=== PATIENT | female | born 1965 ===

== ENCOUNTER 2018-04-25 17:42 | Emergency (ER) | payer OTHER ==
[2018-04-25 18:07] VITALS: TEMP 98.8
--- NOTE | 2018-04-25 18:54 | ED PDOC ---
HPI: Abdomen Time Seen by Provider: 04/25/18 18:00 Chief Complaint (Nursing): Female Genitourinary Chief Complaint (Provider): Abdominal distention History Per: Patient History/Exam Limitations: no limitations Onset/Duration Of Symptoms: Days Outside of [place] travel?: No Current Symptoms Are (Timing): Still Present Quality Of Discomfort: Pressure, "Pain" Associated Symptoms: Urinary Symptoms Additional History Per: Patient Additional Complaint(s): 52yo female, otherwise well, comes to ER with complaints of abdominal distention , pressure and lower abdominal pain x 1 week. She also reports mild hematuria and pressure upon urination; patient was evaluated by Dr. Naranjo and had a urinalysis which showed proteins in the urine. She also states 1 week ago, she had right sided chest pain and then a couple days later, experienced vision loss. Patient was evaluated by her opthlamologist who stated " ? amarosas fugax or ? migraines"; patient's vision was reported to be normal. Currently, she reports generalized malaise and pain at her joints. Otherwise, no fever, chills , chest pain currently, shortness of breath, weakness or numbness. No other medical complaints. Past Medical History Reviewed: Historical Data, Nursing Documentation, Vital Signs Vital Signs: Last Vital Signs Temp 98.8 F 04/25/18 21:28 Pulse 60 04/25/18 21:28 Resp 16 04/25/18 21:28 BP 126/75 04/25/18 21:28 Pulse Ox 98 04/26/18 04:42 - Medical History PMH: No Chronic Diseases - Surgical History Surgical History: No Surg Hx - Family History Family History: States: No Known Family Hx - Home Medications Home Medications: Ambulatory Orders Medication Instructions Recorded Ibuprofen [Motrin] 600 mg PO TID PRN #30 tab 12/09/13 Ketorolac Tromethamine [Toradol] 10 mg PO BID #30 tab 04/25/18 Simethicone [Gas Relief 80] 80 mg PO DAILY #12 ctb 04/25/18 - Allergies Allergies/Adverse Reactions: Allergies Allergy/AdvReac Type Severity Reaction Status Date / Time No Known Allergies Allergy Verified 04/25/18 18:00 Review of Systems ROS Statement: Except As Marked, All Systems Reviewed And Found Negative Constitutional: Positive for: Weakness, Malaise. Negative for: Fever, Chills Cardiovascular: Negative for: Chest Pain Respiratory: Negative for: Shortness of Breath Gastrointestinal: Positive for: Abdominal Pain Genitourinary Female: Positive for: Dysuria, Hematuria Neurological: Negative for: Weakness, Numbness, Headache Physical Exam - Reviewed Nursing Documentation Reviewed: Yes Vital Signs Reviewed: Yes - Physical Exam Appears: Positive for: Non-toxic Head Exam: Positive for: ATRAUMATIC, NORMAL INSPECTION, NORMOCEPHALIC Skin: Positive for: Normal Color Eye Exam: Positive for: Normal appearance, EOMI, PERRL Neck: Positive for: Normal, Supple Cardiovascular/Chest: Positive for: Regular Rate, Rhythm Respiratory: Positive for: Normal Breath Sounds Gastrointestinal/Abdominal: Positive for: Soft, Tenderness (suprapubic). Negative for: Mass, Guarding, Rebound Back: Positive for: L CVA Tenderness (mild) Extremity: Positive for: Normal ROM. Negative for: Deformity Neurologic/Psych: Positive for: Alert, Oriented. Negative for: Motor/Sensory Deficits - Laboratory Results Result Diagrams: 04/25/18 19:12 04/25/18 19:12 - ECG O2 Sat by Pulse Oximetry: 98 (RA) Pulse Ox Interpretation: Normal Medical Decision Making Medical Decision Making: Impression: Abdominal distention, dysuria, generalized weakness Plan: * Labs * CT Head w/o contrast * CT Abdomen/Pelvis w/o contrast * EKG * Urinalysis Time: 1900 Patient signed out to Dr. Vuong pending ER workup. Scribe Attestation: Documented by Holly Willson, acting as a scribe for Ja Albert MD. Provider Scribe Attestation: All medical record entries made by the Scribe were at my direction and personally dictated by me. I have reviewed the chart and agree that the record accurately reflects my personal performance of the history, physical exam, medical decision making, and the department course for this patient. I have also personally directed, reviewed, and agree with the discharge instructions and disposition. Disposition - Clinical Impression Clinical Impression: Ovarian cyst - Patient ED Disposition Is Patient to be Admitted: Transfer of Care - Disposition Referrals: [facility] [Outside] Disposition: Transfer of Care Disposition Time: 18:50 Condition: STABLE Prescriptions: Ketorolac Tromethamine [Toradol] 10 mg PO BID #30 tab Simethicone [Gas Relief 80] 80 mg PO DAILY #12 ctb Instructions: Ovarian Cysts, Acute Abdomen (Belly Pain), Adult (DC) Forms: [employer] (Bulgarian) Print Language: DANISH Patient Signed Over To: Bro Vuong
[2018-04-25 19:24] LABS: BASO % 0.7 % (0.0-2.0); EOS # 0.1 K/uL (0.0-0.7); EOS % 1.9 % (0.0-4.0); HEMOGLOBIN 13.1 g/dL (12.0-16.0); LYMPH # 1.5 K/uL (1.0-4.3); LYMPH % 31.1 % (20.0-40.0); MEAN CELL VOLUME 88.1 fl (81.0-99.0); MEAN CORPUSCULAR HGB CONC 34.1 g/dL (33.0-37.0); MEAN PLATELET VOLUME 7.7 fl (7.2-11.7); MONO # 0.5 K/uL (0.0-0.8); MONO % 9.5 % (0.0-10.0); NEUT # 2.7 K/uL (1.8-7.0); NEUT % 56.8 % (50.0-75.0); RBC 4.36 Mil/uL (3.80-5.20); RED CELL DISTRIBUTION WIDTH 13.4 % (11.5-14.5); WHITE BLOOD COUNT 4.8 K/uL (4.8-10.8)
--- NOTE | 2018-04-25 19:30 | ED PDOC ---
- Laboratory Results Result Diagrams: 04/25/18 19:12 04/25/18 19:12 - ECG O2 Sat by Pulse Oximetry: 98 (RA) Pulse Ox Interpretation: Normal Medical Decision Making Medical Decision Makin:10 Patient is a 52yo female, comes to ER with complaints of abdominal distention, generalized malaise, urinary pressure. She also reports an episode of chest pain 1 week ago and vision changes as well. Patient signed out to me by Dr. Albert pending labs, CT studies and reassessment. 19:54 CT Head FINDINGS: Brain: No intracranial hemorrhage. No mass. No definite edema. Ventricles: No hydrocephalus. Bones/joints: No acute fracture. Soft tissues: Unremarkable. Sinuses: No acute sinusitis. Mastoid air cells: No significant effusion. Orbits: Unremarkable as visualized. IMPRESSION: 1. No definite acute intracranial abnormality. 2123 Labs reviewed and show no clinically significant abnormalities. Patient was seen and evaluated at bedside and states feeling better. Reports the vision changes were only momentary and was days ago with no recurrence. She states she is concerned about having pain tomorrow and about follow up. Offered patient [facility] and [facility] follow up and states she [place] this [place] testing. Advised patient to return to ED for any worsening symptoms. Patient well appearing and stable upon discharge home. Scribe Attestation: Documented by Holly Willson, acting as a scribe for Bro Vuong MD. Provider Scribe Attestation: All medical record entries made by the Scribe were at my direction and personally dictated by me. I have reviewed the chart and agree that the record accurately reflects my personal performance of the history, physical exam, medical decision making, and the department course for this patient. I have also personally directed, reviewed, and agree with the discharge instructions and disposition. Disposition - Clinical Impression Clinical Impression: Ovarian cyst - POA Present On Arrival: None - Disposition Referrals: [facility] [Outside] Disposition: Routine/Home Disposition Time: 21:24 Condition: STABLE Prescriptions: Ketorolac Tromethamine [Toradol] 10 mg PO BID #30 tab Simethicone [Gas Relief 80] 80 mg PO DAILY #12 ctb Instructions: Ovarian Cysts, Acute Abdomen (Belly Pain), Adult (DC) Forms: [employer] ([place]an) Print Language: MALDIVIAN
[2018-04-25 19:46] LABS: ALB/GLOB RATIO 1.1 (1.0-2.1); ALBUMIN 3.6 g/dL (3.5-5.0); ALT/SGPT 35 U/L (9-52); AST/SGOT 29 U/L (14-36); BLOOD UREA NITROGEN 19 mg/dl (7-17); GFR NON-AFRICAN AMERICAN > 60
[2018-04-25 20:44] LABS: SQUAMOUS EPITHIAL 2 /hpf (0-5); URINE BACTERIA RARE (<OCC); URINE BILIRUBIN NEGATIVE (NEGATIVE); URINE CLARITY CLEAR (Clear); URINE COLOR YELLOW (YELLOW); URINE GLUCOSE (UA) NEG (Normal); URINE LEUKOCYTE ESTERASE NEG Leu/uL (Negative); URINE PROTEIN >=500 mg/dL (NEGATIVE); URINE UROBILINOGEN 0.2-1.0 mg/dL (0.2-1.0)
[2018-04-25 20:45] LABS: URINE BLOOD MODERATE (NEGATIVE)
[2018-04-25 21:28] VITALS: BP 126/75; PULSE 60; RESP 16
[2018-04-26 04:43] VITALS: O2SAT 98
--- NOTE | 2018-04-26 08:48 | CARD ---
APPROVED REPORT Date of service: 04/25/2018 <Conclusion> Normal sinus rhythm Cannot rule out Anterior infarct, age undetermined Abnormal ECG
--- NOTE | 2018-04-26 10:15 | CT ---
Date of service: 04/25/2018 PROCEDURE: CT HEAD WITHOUT CONTRAST. HISTORY: visual changes COMPARISON: None available. TECHNIQUE: Axial computed tomography images were obtained through the head/brain without intravenous contrast. Radiation dose: Total exam DLP = 792.03 mGy-cm. This CT exam was performed using one or more of the following dose reduction techniques: Automated exposure control, adjustment of the mA and/or kV according to patient size, and/or use of iterative reconstruction technique. FINDINGS: HEMORRHAGE: No intracranial hemorrhage. BRAIN: Normal chou-white matter differentiation and density are appreciated throughout the cerebrum and cerebellum with the brainstem appearing unremarkable as well. There is no mass effect. There is no suspicious extra-axial fluid collection and the midline brain anatomy appears diffusely unremarkable. VENTRICLES: Unremarkable. No hydrocephalus. CALVARIUM: Unremarkable. PARANASAL SINUSES: Unremarkable as visualized. No significant inflammatory changes. MASTOID AIR CELLS: Unremarkable as visualized. No inflammatory changes. OTHER FINDINGS: None. IMPRESSION: Unremarkable noncontrast CT of the Head. Concordant preliminary report from [facility], 04/25/2018.
--- NOTE | 2018-04-26 11:52 | CT ---
Date of service: 04/25/2018 PROCEDURE: CT Abdomen and Pelvis without intravenous contrast HISTORY: abd pain COMPARISON: Lymph TECHNIQUE: Unenhanced study. Neither oral nor intravenous contrast administered. Radiation dose: Total exam DLP = 575.54 mGy-cm. This CT exam was performed using one or more of the following dose reduction techniques: Automated exposure control, adjustment of the mA and/or kV according to patient size, and/or use of iterative reconstruction technique. FINDINGS: LOWER THORAX: Unremarkable. LIVER: Unremarkable. No gross lesion or ductal dilatation. GALLBLADDER AND BILE DUCTS: Unremarkable. PANCREAS: Unremarkable. No gross lesion or ductal dilatation. SPLEEN: Unremarkable. ADRENALS: Unremarkable. No mass. KIDNEYS AND URETERS: Unremarkable. No hydronephrosis. No solid mass. VASCULATURE: Unremarkable. No aortic aneurysm. BOWEL: Unremarkable. No obstruction. No gross mural thickening. APPENDIX: No abnormalities to suggest acute appendicitis. No right lower quadrant inflammatory processes identified. PERITONEUM: Unremarkable. No free fluid. No free air. LYMPH NODES: Unremarkable. No enlarged lymph nodes. BLADDER: Unremarkable. REPRODUCTIVE: Left adnexal cyst 2 cm. BONES: No acute fracture. OTHER FINDINGS: None. IMPRESSION: No acute findings related to/accounting for the clinical presentation. Additional benign and/or incidental findings described above. Concordant results (preliminary interpretation) provided by [email or web address]. Procedure Completed: 19:05 Preliminary ([employer]) Report: Dictated and Authenticated: 20:00. Final Interpretation: 11:50.April 26, 2018.
== END 2018-04-25 21:37 | disposition home or self-care (01) ==
LOC: H.ER 17:42
DX: N83.209 Unspecified ovarian cyst, unspecified side (principal)